=== PATIENT | female | born 1970 | race Caucasian/White ===

== ENCOUNTER 2016-09-12 12:20 | Outpatient (CLI) | payer MEDICARE ==
[2016-09-12] MEDS ORDERED: GADOBUTROL 7.5 MMOL/7.5 ML VIAL IVP ONE (14:06)
== END 2016-09-12 12:21 | disposition home or self-care (01) ==
DX: M47.892 Other spondylosis, cervical region (principal); M25.78 Osteophyte, vertebrae
CPT/HCPCS: 70553; 72156; A9585

== ENCOUNTER 2016-11-09 13:22 | Outpatient (CLI) | payer MEDICARE, OTHER ==
--- NOTE | 2016-11-09 19:07 | XRAY Report ---
THREE-VIEW RIGHT ANKLE: 11/09/2016 CLINICAL INDICATION: Trauma, pain. FINDINGS: AP, lateral, oblique views of the right ankle demonstrate lateral soft tissue swelling. T here is no evidence of acute fracture or dislocation. Posterior calcaneal spurring is noted. No for eign body is seen in the soft tissues. IMPRESSION: SOFT TISSUE SWELLING, BUT NO EVIDENCE OF ACUTE FRACTURE. JOB #: [id number] EXT JOB #:[id number]
== END 2016-11-09 13:23 | disposition home or self-care (01) ==
LOC: DI 13:22
PROVIDERS: ATTEND Specialist
DX: M25.571 Pain in right ankle and joints of right foot (principal); R22.41 Localized swelling, mass and lump, right lower limb